=== PATIENT | male | born 1935 | race Caucasian/White ===

== ENCOUNTER 2018-07-31 09:34 | Day surgery (SDC) | payer MEDICARE, OTHER ==
[~2018-07-31 09:34] MED LIST: AMLO5; CYCL10 PO; HYDACE5 PO; LISI10; NAPR500 PO; SIMV20; TAMS.4ER PO; ZOLP10 PO
[2018-07-31 10:59] LABS: Performing Lab VERACYTE; Test Name FNA
== END 2018-07-31 22:43 | disposition home or self-care (01) ==
LOC: US 09:34
PROVIDERS: Family Medicine
DX: E04.1 Nontoxic single thyroid nodule (principal)
CPT/HCPCS: 10005